=== PATIENT | male | born 1945 | race Caucasian/White ===

== ENCOUNTER 2025-05-17 19:54 | Emergency (ER) | payer OTHER, SELFPAY ==
[2025-05-17 19:55] VITALS: BP 134/87
[2025-05-17 20:21] LABS: % Basophils 0.1 % (0-2); % Immature Granulocytes 0.3 % (0-0.5); % Lymphocytes 4.6 % (20.5-51.1); % Monocytes 5.6 % (1.7-9.3); % Neutrophils 89.4 % (42.2-75.2); Absolute Lymphocytes 0.4 10^3/uL (1.2-3.4); Absolute Monocytes 0.5 10^3/uL (0.1-0.6); Hematocrit 31.2 % (39.0-52.0); Hemoglobin 10.3 g/dL (13.0-18.0); Mean Corpuscular Hgb 27.7 pg (27.0-31.0); Mean Corpuscular Volume 83.9 fL (80.0-94.0); Mean Platelet Volume 10.1 fL (7.4-10.4); Nucleated Red Blood Cells % 0 % (-); Platelet Count 234 10^3/uL (130-400); Red Blood Cell Count 3.72 10^6/uL (4.70-6.10); Red Cell Dist. Width 16.6 % (11.5-14.5); White Blood Cell Count 8.9 10^3/uL (4.8-10.8)
[2025-05-17 20:29] LABS: Lactic Acid 1.1 mmol/L (0.7-2.0)
[2025-05-17 20:38] LABS: ALT (SGPT) 18 U/L (0-50); AST (SGOT) 23 U/L (17-59); Albumin 4.7 g/dl (3.5-5.0); Alkaline Phosphatase 86 U/L (38-126); Blood Urea Nitrogen 38 mg/dl (9-20); Calcium 9.6 mg/dl (8.4-10.2); Carbon Dioxide 19 mmol/L (22-30); Chloride 110 mmol/L (98-107); Glucose 134 mg/dl (70-99); Lipase 155 U/L (23-300); Sodium 137 mmol/L (135-145); Total Bilirubin 0.6 mg/dl (0.2-1.3); Total Protein 7.3 g/dl (6.3-8.2); eGFR 46.77
[2025-05-17 20:41] LABS: Troponin I < 0.012 ng/ml
[2025-05-17 21:31] VITALS: BP 173/72
[2025-05-17 21:32] VITALS: BP 172/84
[2025-05-17 22:00] VITALS: BP 156/103
[2025-05-17 22:26] VITALS: BMI 22.5
--- NOTE | 2025-05-17 22:34 | ED.GENMED ---
History of Present Illness
General
Chief Complaint: Fall
Time Seen by Provider: 05/17/25 22:34
History of Present Illness
History of Present Illness:
TIME OF INITIAL EVALUATION
- 10:40 PM
REVIEW OF OLD RECORDS
- The patient has history of high blood pressure, diabetes, and prostate cancer. The patient was last seen here in 2020 with a fingertip injury.
Note:
CHIEF COMPLAINT(S)
Weakness and imbalance after hitting head.
HISTORY OF PRESENT ILLNESS
The patient is an 79-year-old male presenting with weakness and imbalance following head trauma. Approximately one and a half months ago, the patient began the process of weaning off the medication metoprolol, with the final dose taken today. The
patient recently experienced symptoms suggestive of food poisoning, including nausea and abdominal discomfort, but denies vomiting or diarrhea. Today, the patient felt particularly weak and out of balance, requiring him to sit down after standing.
According to the patient, drinking over three-quarters of a gallon of water per day led to frequent urination, approximately every hour. The patient reports hitting his head three times today, leading to one fall backward and then forward. Despite
these incidents, there is no report of neck pain or significant current discomfort. The patient denies dehydration, yet laboratory results indicate a creatinine level of 1.5 mg/dL, suggesting mild renal impairment. However, the patient does tell me
that he has been told that he has renal insufficiency. No old creatinine levels are available in [facility]. A CT scan of the head has been planned to assess for any intracranial injuries. He takes baby aspirin daily.
ADDITIONAL HISTORY OBTAINED FROM SOURCES OTHER THAN THE PATIENT
Reported by neighbors at bedside, the patient experienced hitting his head three times today due to falls.
PHYSICAL EXAM
- General: Well appearing in no distress
- Head: No craniofacial trauma
- C-spine: No midline c-spine tenderness; normal AROM of C-spine
- Back: Normal AROM thoracolumbar spine
- HEENT: Moist oral mucosa, no blood
- Cardiovascular: No murmurs, normal heart rate, regular rhythm, No chest wall tenderness
- Pulmonary: No respiratory distress, breath sounds are clear and equal
- Abdomen: Soft with no peritoneal signs, no tenderness
- Neurologic: Excellent strength all extremities, no coordination deficits
- Psychiatric: Appropriate mental status, normal insight and judgement
- Extremities: Nontender, no edema, moves all extremities equally
- Skin: No rash, no lesions
DIFFERENTIAL DIAGNOSIS
The Differential Diagnosis includes, in no particular order and is not limited to:
1. Dehydration
2. Orthostatic hypotension
3. Vestibular dysfunction
4. Benign paroxysmal positional vertigo
5. Intracranial hemorrhage
6. Syncope secondary to arrhythmia
7. Medication side effect or withdrawal
8. Acute kidney injury
9. Electrolyte imbalance
10. Cerebrovascular accident
RADIOLOGY
- CT head obtained shows subarachnoid hemorrhage which is small
EKG
- Sinus 72, leftward axis deviation, first-degree AV block
LABS
- White count normal, hemoglobin 10.3, bicarb 19, BUN 38, creatinine 1.5, troponin less than 0.012
UPDATE
SUMMARY OF ENCOUNTER
Patient presented with weakness and imbalance after multiple episodes of head trauma. A CT scan of the head showed a small amount of bleeding in the subarachnoid space. The patient denies severe headaches or symptoms preceding falls, reporting only
minor headache after the incidents.
DISPOSITION
Plan for transfer to [facility] for further evaluation and management by neurosurgery, as the current facility does not have neurosurgical capabilities.
INDEPENDENT REVIEW OF LABS AND INTERPRETATION OF TESTS
My independent interpretation of the CT scan of the head is a minor subarachnoid hemorrhage, potentially related to recent head trauma. Consideration was given to the possibility of a ruptured aneurysm, but the lack of severe headache makes this
less likely.
MEDICAL DECISION MAKING
1. Number & Complexity of Problems:
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
- Differential diagnoses considered: Intracranial hemorrhage due to trauma vs. aneurysmal rupture.
2. Data Reviewed:
- CT scan of the head was ordered and reviewed.
3. Risk: Consideration of admission/observation was made due to complexity/risk. However, transfer to a facility with neurosurgical capabilities is appropriate based on the CT findings and the lack of severe symptoms or need for immediate surgical
intervention.
PATHOLOGIES TO CONSIDER
- Intracranial hemorrhage (due to trauma or potential vascular anomaly)
- Ruptured aneurysm (less likely without severe headache)
I discussed case with Dr. Mancini who suspects that the presentation is consistent with traumatic subarachnoid hemorrhage and does not feel the patient requires CTA at this time. She recommends repeat CT in 6 hours. Given the patient's recurrence of
falling, I am not sure that he would be safely discharged after another CT later this morning. Therefore I recommend that he be transferred, trauma attending at [facility] accepts.
Past History
Past History
ED Past Medical History: None
ED Past Surgical History: None
Social History
Tobacco: Non-smoker
Alcohol: None
Phy Exam
Physical Exam
Physical Exam:
See HPI
Course
Orders/Labs/Results
Orders:
Orders
05/17/25 19:59
ECG [Electrocardiogram (*1)] Urgent
Reason for Study: Fatigue / Weakness
EKG- Treatment ONCE
05/17/25 20:10
Complete Blood Count/With Diff Urgent
Comprehensive Metabolic Panel Urgent
Lactic Acid Urgent
Lipase Urgent
Troponin I Urgent
05/17/25 23:08
0.9% Sodium Chloride 1000 ml [Nss] 1,000 ml IV BOLUS
05/18/25
CT Head W/o Iv Contrast Urgent
Reason For Exam: recurrent head trauma
Abnormal Lab Results
05/17/25
20:10
RBC 3.72 L 10^6/uL
(4.70-6.10)
Hgb 10.3 L g/dL
(13.0-18.0)
Hct 31.2 L %
(39.0-52.0)
RDW 16.6 H %
(11.5-14.5)
Absolute Neuts (auto) 8.0 H 10^3/uL
(1.4-6.5)
Absolute Lymphs (auto) 0.4 L 10^3/uL
(1.2-3.4)
Neutrophils % 89.4 H %
(42.2-75.2)
Lymphocytes % 4.6 L %
(20.5-51.1)
Chloride 110 H mmol/L
(98-107)
Carbon Dioxide 19 L mmol/L
(22-30)
BUN 38 H mg/dl
(9-20)
Creatinine 1.5 H mg/dL
(0.7-1.3)
Glucose 134 H mg/dl
(70-99)
05/17/25 20:10
05/17/25 20:10
Vital Signs
Initial and Last Documented VS:
Initial Vital Signs
Temp Pulse Resp BP Pulse Ox
36.8 C 79 20 134/87 96
05/17/25 19:55 05/17/25 19:55 05/17/25 19:55 05/17/25 19:55 05/17/25 19:55
Last Documented Vital Signs
Temp Pulse Resp BP Pulse Ox
36.8 C 69 20 156/55 99
05/17/25 19:55 05/17/25 23:37 05/17/25 19:55 05/18/25 00:00 05/18/25 00:00
*Pulse Oximetry
SaO2: 97
Oxygen Mode of Delivery: Room air
Patient hypoxic: no
*Critical Care Note
Total Time (30-74mins, 75-104mins- exclusive of procedures): 45min
comment:
The patient has evidence of subarachnoid hemorrhage which is likely traumatic. I discussed case emergently with neurosurgery and trauma attending at [facility]. The patient's neurostatus was closely monitored here and remains unchanged. Arranging
transfer emergently to trauma center.
ED Attending Note
-
Portions of this chart may have been created with voice recognition software.� Occasional wrong word or��sound alike� substitutions may have occurred due to the inherent limitations of voice recognition software.
Discharge Plan
Departure
Patient Disposition: Acute Care Hospital
Date of Disposition: 05/18/25
Time of Disposition: 01:30
Patient with high blood pressure during this ER visit?: Yes
Discharge Problem:
Subarachnoid hemorrhage
Prescriptions:
No Action
cephalexin 500 MG capsule
500 mg PO QID Qty: 28 0RF
amoxicillin-pot clavulanate 1 TABLET tablet
1 tab PO Q12 Qty: 14 0RF
Referrals:
Brooks Ruiz MD [Family Provider, Internal Medicine]
Hospital Transfer
Other hospital: [facility]
I certify that the patient requires transfer: Yes
Discussed case with accepting physician: trauma ICU attending
Reason for transfer: higher level of care and availability of service
Interventions
Interventions:
*Risk Screen - Suicide Last Done: 05/17/25 22:25
*General Assessment Last Done: 05/17/25 19:55
*Neglect/Abuse Screening Last Done: 05/17/25 22:25
*ED- Fall Risk Assessment Last Done: 05/17/25 21:45
*ED COVID-19 Vaccine History Last Done: 05/17/25 21:45
ED-Musculoskeletal Assessment Last Done: 05/17/25 22:25
ED- Neurological Assessment Last Done: 05/17/25 22:25
ED-Skin Assessment Last Done: 05/17/25 22:25
Discharge Date and Time
Print Language: HEBREW
[2025-05-17 23:00] VITALS: BP 160/67
[2025-05-17] MEDS: NSS 1000 IV (23:21)
[2025-05-18] VITALS: BP 156/55
[2025-05-18 03:44] VITALS: BP 149/70
== END 2025-05-18 04:03 | disposition short-term general hospital (02) ==
LOC: EMR 19:54
PROVIDERS: EMERGENCY PHYSICIAN Emergency Medicine; FAMILY PHYSICIAN Internal Medicine
DX: I60.9 Nontraumatic subarachnoid hemorrhage, unspecified (principal); R03.0 Elevated blood-pressure reading, without diagnosis of hypertension; E11.9 Type 2 diabetes mellitus without complications; Z79.82 Long term (current) use of aspirin
CPT/HCPCS: 99284; 96360; 70450; 80053; 83605; 83690; 84484; 85025; 93005

== ENCOUNTER 2025-11-24 00:57 | Emergency (ER) | payer OTHER, SELFPAY ==
[2025-11-24 01:01] VITALS: BP 154/73
[2025-11-24 01:11] VITALS: BMI 26.3
[2025-11-24 02:00] VITALS: BP 135/53
--- NOTE | 2025-11-24 02:14 | ED.GENMED ---
History of Present Illness
General
Chief Complaint: Fall
Source: patient
Time Seen by Provider: 11/24/25 01:37
History of Present Illness
History of Present Illness:
80-year-old male with past medical history of hypertension, hyperlipidemia, [id number] diabetes presents to the emergency department with the EMS for evaluation after he had an accidental fall after he had consumed at least 3 ounces of
whiskey, fell into a nonburning fireplace and was unable to get up on his own. Patient has extensive laceration/abrasion on his face as well as a small superficial abrasion to the left forearm. No other injuries were sustained. Patient's tetanus
vaccine is up-to-date. Patient denies any loss of consciousness, vomiting, visual changes or any other concerns.
Past History
Past History
ED Past Medical History: HTN, Hypercholesterolemia and NIDDM
ED Past Surgical History: Orthopedic and Urological
Social History
Tobacco: Non-smoker
Alcohol: None
Drug: None
Personal:
Living: with family
Review of Systems
Review of Systems
All Other Systems: ROS reviewed and negative except as documented in HPI and ROS
Phy Exam
Physical Exam
Physical Exam:
GENERAL: Alert , in no apparent distress
HEAD: Stellate 2 cm laceration to the mid forehead, superficial, 2 cm in total size, surrounded by multiple abrasions/skin tears.
EYE: pupils equal and reactive
NECK: Supple, no significant adenopathy.
ENT: o/p clr, mmm. Puncture wound over where glasses are on the nasal bridge, no active bleeding, measures less than 2 mm
CARDIAC: Regular rate and rhythm .
LUNGS: Clear breath sounds bilaterally, no acute respiratory distress, no wheezes/rales/rhonchi
ABDOMEN: Soft, without focal tenderness, no r/g, no cvat
NEUROLOGICAL: Alert and oriented
SKIN: Warm and dry, skin intact.
MUSCULOSKELETAL: No edema, well perfused.
PSYCH: Normal and appropriate interaction.
Scores
Heart Failure Risk
Heart Failure Risk Score: Not Applicable
Heart Score for Chest Pain Patients
STEMI patient?: Not applicable
Withdrawal Assessment of Alcohol
Withdrawal Assessment Completed?: Not applicable
Course
Orders/Labs/Results
Orders:
Orders
11/24/25 01:41
CT Cervical Spine W/o Iv Contr Urgent
Comment:
Reason For Exam: fall, head injury, ETOH
CT Facial Bones W/o Iv Contras Urgent
Comment:
Reason For Exam: fall, head injury, ETOH
CT Head W/o Iv Contrast Urgent
Comment:
Reason For Exam: fall, head injury, ETOH
Vital Signs
Initial and Last Documented VS:
Initial Vital Signs
Temp Pulse Resp BP Pulse Ox
97.5 F 56 18 154/73 99
11/24/25 01:01 11/24/25 01:01 11/24/25 01:01 11/24/25 01:01 11/24/25 01:01
Last Documented Vital Signs
Temp Pulse Resp BP Pulse Ox
97.5 F 59 18 135/53 99
11/24/25 01:01 11/24/25 02:33 11/24/25 01:01 11/24/25 02:00 11/24/25 02:33
Procedures
Laceration Closure
Anterior Forehead:
Status of Wound: clean
Size of Wound in cm: 2
Description of Wound Edges: surrounded by abrasion and other (stellate)
Preparation: cleaned with saline
Anesthesia: 1% Lidocaine with epi
Revision/Debridement: routine- no revision
Wound exploration: explored to base- no FB
Type of Closure: single layer closure
Skin Closure Material: 6-0 nylon
Number of sutures: 9
MDM/Problems Addressed
Differential Diagnosis Includes:
Superficial lacerations
Facial fracture
Contusion
Concussion
ICH
No carbajal noted
MDM/Problems Addressed:
80-year-old male presenting to the ER for evaluation following an accidental fall, was unable to get up on his own, EMS brought patient to the ER for further evaluation. Patient intoxicated. Laceration repaired as above without difficulty. Suture
removal 5 to [address] of the head, facial bones and cervical spine. Disposition pending.
*Radiology
Radiology exam reviewed: radiology read reviewed
*Pulse Oximetry
SaO2: 97
Oxygen Mode of Delivery: Room air
Patient hypoxic: no
*Critical Care Note
Total Time (30-74mins, 75-104mins- exclusive of procedures): Not Applicable
Patient Management
Escalation/DeEscalation of care consider admission/obs:
CT is negative for any acute intracranial pathology. There are no facial bone fractures or acute cervical spine injuries. Family going to take patient home. Aware of return precautions. Stable for discharge.
ED Attending Note
-
Portions of this chart may have been created with voice recognition software.� Occasional wrong word or��sound alike� substitutions may have occurred due to the inherent limitations of voice recognition software.
Discharge Plan
Departure
Patient Disposition: Home (Routine Discharge)
Date of Disposition: 11/24/25
Time of Disposition: 02:57
Patient with high blood pressure during this ER visit?: Yes
Discharge Problem:
Accidental fall, Facial laceration, Abrasion of right forearm, Alcohol intoxication
Instructions: Laceration Repair With Stitches (DC)
Prescriptions:
No Action
cephalexin 500 MG capsule
500 mg PO QID Qty: 28 0RF
amoxicillin-pot clavulanate 1 TABLET tablet
1 tab PO Q12 Qty: 14 0RF
Referrals:
UNKNOWN - PT DOES,NOT KNOW [Unknown Provider]
Activity Restrictions/Additional Instructions:
Suture removal in 5-7 days
Interventions
Interventions:
*General Assessment Last Done: 11/24/25 01:10
*Neglect/Abuse Screening Last Done: 11/24/25 01:10
*ED COVID-19 Vaccine History Last Done: 11/24/25 01:10
*ED Influenza Vaccine History Last Done: 11/24/25 01:10
[facility] Fall Risk Assessment Tool Last Done: 11/24/25 01:00
*Risk Screen - Suicide (C-SSRS) Last Done: 11/24/25 01:10
*Nursing Disposition Last Done: 11/24/25 03:04
ED-Musculoskeletal Assessment Last Done: 11/24/25 01:20
ED- Neurological Assessment Last Done: 11/24/25 01:20
ED-Skin Assessment Last Done: 11/24/25 01:20
Discharge Date and Time
Discharge Date/Time: 11/24/25 03:06
Print Language: POLISH
== END 2025-11-24 03:06 | disposition home or self-care (01) ==
LOC: EMR 00:57
PROVIDERS: EMERGENCY PHYSICIAN Student in an Organized Health Care Education/Training Program; FAMILY PHYSICIAN Internal Medicine
DX: S01.81XA Laceration without foreign body of other part of head, initial encounter (principal); S50.811A Abrasion of right forearm, initial encounter; W01.0XXA Fall on same level from slipping, tripping and stumbling without subsequent striking against object, initial encounter; F10.129 Alcohol abuse with intoxication, unspecified; E11.9 Type 2 diabetes mellitus without complications; I10 Essential (primary) hypertension; E78.00 Pure hypercholesterolemia, unspecified; Z79.84 Long term (current) use of oral hypoglycemic drugs
CPT/HCPCS: 99284; 70450; 70486; 72125